=== PATIENT | male | born 1965 | race Two or more races ===

== ENCOUNTER → 2024-03-28 | Outpatient (CLI) | payer OTHER, SELFPAY ==
[2024-03-28 10:18] LABS: Glucose Estimated Average 146 mg/dL (80-131); Hemoglobin A1C 6.7 % Hgb (4.8-6.0)
[2024-03-28 10:32] LABS: Alanine Aminotransferase 13 U/L (10-49); Albumin, Serum 4.5 gm/dL (3.4-4.8); Albumin/Globulin Ratio 1.7 (1.2-2.2); Alkaline Phosphatase 69 U/L (46-116); Anion Gap 5 (7-16); Aspartate Amino Transferase 18 U/L (0-34); BUN/Creatinine Ratio 23 Ratio (12-20); Bilirubin,Total 0.5 mg/dL (0.3-1.2); Blood Urea Nitrogen 21 mg/dL (9-23); Calcium 9.6 mg/dL (8.3-10.6); Calcium (Corrected) 9.6 mg/dL (8.5-10.1); Carbon Dioxide 29.3 mMol/L (20.0-31.0); Cardiac Risk Estimate 2.9 RATIO (4.0-6.7); Chloride 104 mMol/L (98-107); Cholesterol 142 mg/dL (132-200); Creatinine (Component) 0.9 mg/dL (0.6-1.3); Globulin 2.7 gm/dL (2.3-3.5); Glucose 101 mg/dL (74-106); HDL Cholesterol 49 mg/dL (40-60); LDL Cholesterol,Calculated 84 mg/dL (0-130); Osmolality,Calculated 278 (275-295); Potassium 4.2 mMol/L (3.4-5.1); Sodium 138 mMol/L (136-145); Total Protein 7.2 gm/dL (5.7-8.2); Triglycerides 45 mg/dL (30-150); Uric Acid 3.9 mg/dL (3.7-9.2); eGFR > 60 See Note
== END | disposition home or self-care (01) ==
LOC: COPL 09:44
PROVIDERS: PCP Family Medicine; Referring Provider Family Medicine; Visit Provider Family Medicine
DX: E11.40 Type 2 diabetes mellitus with diabetic neuropathy, unspecified (principal); E78.2 Mixed hyperlipidemia; I10 Essential (primary) hypertension; M10.9 Gout, unspecified
CPT/HCPCS: 36415; 80053; 80061; 83036; 84550

== ENCOUNTER 2024-08-11 05:40 | Day surgery (SDC) | payer OTHER, SELFPAY ==
--- NOTE | 2024-08-08 07:00 | EKG_ITS ---
[facility] Test Date: 2024-08-08 Pat Name: CAMILLE GARCIA Department: Room: - Gender: Male Fish Filleter: RT STUDENT : 1965 Requested By: Luis Pope Order Number: [id number] Reading MD: Luis Pope Measurements Intervals Barnhart Rate: 65 P: 48 ME: 180 QRS: -45 QRSD: 153 T: 124 QT: 412 QTc: 430 Interpretive Statements SINUS RHYTHM WITH OCCASIONAL VENTRICULAR PREMATURE COMPLEXES INTRAVENTRICULAR CONDUCTION DELAY [130+ ms QRS DURATION] LATERAL MYOCARDIAL INFARCTION , PROBABLY RECENT [40+ ms Q WAVE AND/OR ST/T ABNORMALITY IN I/aVL/V5/V6] INFERIOR MYOCARDIAL INFARCTION , POSSIBLY ACUTE [40+ ms Q WAVE AND/OR ST/T ABNORMALITY IN II/aVF] ACUTE HI Compared to ECG 03/25/2023 07:12:02 Ventricular premature complex(es) now present Intraventricular conduction delay now present Myocardial infarct finding now present Left-axis deviation no longer present Left bundle-branch block no longer present /store/S0/[id number]/ecg/[id number].pdf
[2024-08-08 07:57] VITALS: BMI 38.1
[2024-08-08 09:08] LABS: Basophils # (Auto) 0.1 Thou/mm3 (0.0-0.2); Basophils % (Auto) 1 % (0-2.5); Eosinophils # (Auto) 0.6 Thou/mm3 (0.0-0.5); Eosinophils % (Auto) 7 % (0-10); Hematocrit 40.6 % (41.0-53.0); Hemoglobin 13.5 g/dL (13.5-16.0); Immature Granulocytes % (Auto) 0 % (0-0); Immature Granulocytes Auto 0.03 Thou/mm3 (0.00-0.00); Lymphocytes # (Auto) 2.3 Thou/mm3 (1.0-4.8); Lymphocytes % (Auto) 27 % (10-50); Mean Corpuscular HGB Conc 33.3 g/dl (31.0-37.0); Mean Corpuscular Hemoglobin 29.3 pg (25.0-35.0); Mean Corpuscular Volume 88 fL (80-100); Monocytes # (Auto) 0.6 Thou/mm3 (0.0-0.8); Monocytes % (Auto) 7 % (0-12); Neutrophils % (Auto) 59 % (37-80); Nucleated Red Blood Cell % 0 /100 WBC (0); Platelet Count 224 Thou/mm3 (140-440); RDW Standard Deviation 43.3 fL (35.1-43.9); White Blood Count 8.5 Thou/mm3 (3.8-10.6)
[2024-08-08 09:16] LABS: Partial Thromboplastin Time 31.6 Seconds (22.0-36.0)
[2024-08-08 09:19] LABS: Alanine Aminotransferase 14 U/L (10-49); Albumin, Serum 4.1 gm/dL (3.4-4.8); Albumin/Globulin Ratio 1.5 (1.2-2.2); Alkaline Phosphatase 64 U/L (46-116); Anion Gap 8 (7-16); Aspartate Amino Transferase 20 U/L (0-34); BUN/Creatinine Ratio 18 Ratio (12-20); Bilirubin,Total 0.5 mg/dL (0.3-1.2); Blood Urea Nitrogen 16 mg/dL (9-23); Calcium 9.2 mg/dL (8.3-10.6); Calcium (Corrected) 9.2 mg/dL (8.5-10.1); Carbon Dioxide 29.5 mMol/L (20.0-31.0); Chloride 105 mMol/L (98-107); Creatinine (Component) 0.9 mg/dL (0.6-1.3); Estimated Creatinine Clearance 103.5 mL/min (>60); Globulin 2.7 gm/dL (2.3-3.5); Glucose 100 mg/dL (74-106); Osmolality,Calculated 284 (275-295); Potassium 4.2 mMol/L (3.4-5.1); Sodium 142 mMol/L (136-145); Total Protein 6.8 gm/dL (5.7-8.2); eGFR > 60 See Note
--- NOTE | 2024-08-08 14:19 | SUR.PREOP ---
Cardiac records reviewed with Dr Mccrary.
[2024-08-11 06:37] VITALS: BP 175/77; PULSE 68; RESP 16; TEMP 36.2; O2SAT 98; BMI 37.5
[2024-08-11] MEDS: RINGERS LACTATED 1000 ML 1,000 ML 20 ML IV (06:50)
--- NOTE | 2024-08-11 07:22 | ESHP_ITS ---
RE: CAMILLE GARCIA : 1965 DATE OF ADMISSION: 08/08/2024 CHIEF COMPLAINT: Triggering right index finger. HISTORY OF PRESENT ILLNESS: The patient has developed triggering of his right index finger. He did have cortisone injection without improvement. He is scheduled for a right index trigger finger release. No numbness or tingling in his hands. PAST MEDICAL HISTORY: Reviewed. , with 5 children. BLOOD TRANSFUSION: None. OPERATIONS: Appendectomy. ALLERGIES: CODEINE. MEDICATIONS: 1. Metformin 2. Pioglitazone 3. Diclofenac gel 4. Phenylephrine 5. Flonase MAJOR MEDICAL ILLNESSES: Diabetes, asthma. Denies heart disease, heart attack, heart murmur, hypertension, gout, kidney disease, liver disease, hepatitis, yellow jaundice, bleeding disorder, depression, ulcer, cancer, valley fever, cholelithiasis. FAMILY HISTORY: Positive for diabetes, asthma, myocardial infarction including mother and father, stroke including father and brother. Prostate cancer. REVIEW OF SYSTEMS: Weight stable. Appetite good. Energy level good. Does have shortness of breath because of asthma. Denies chest pain, orthopnea, paroxysmal nocturnal dyspnea, dyspnea on exertion, productive cough, hemoptysis. Does have constipation. Denies nausea, vomiting, diarrhea, hematemesis, hematochezia, melena, black tarry bowel movements. Denies dysuria, pyuria, hematuria. Denies stroke, seizures, syncope episodes. Does not smoke. Occasionally has a drink. Does have numbness and tingling in the fingers. PHYSICAL EXAMINATION: GENERAL: A well-developed, well-nourished male in no acute distress. MUSCULOSKELETAL: Turns head side to side without pain. Flexes and extends his head without difficulty. Full range of motion of his shoulders, elbows, wrists, hands bilaterally. Has triggering right index finger. CHEST: Clear to percussion and auscultation. HEART: Regular rate and rhythm. No murmurs. No gallops. ABDOMEN: Soft, nontender. No masses. No organomegaly. BREASTS: Deferred. RECTAL: Deferred. GENITAL: Deferred. EXTREMITIES: Examination of the extremities again shows the right index finger. PLAN: Release of right index trigger finger. Risks of the procedure explained to the patient. Signed informed consent was obtained in my office. DT: 20:44:58 TT: 21:32:00 Ref: [id number] - TID: [id number]
--- NOTE | 2024-08-11 07:29 | SUR.PREOP ---
Patient expressed gratitude for prayer before their procedure.
[2024-08-11 09:10] VITALS: BP 161/75; PULSE 60; RESP 14; TEMP 36.2; O2SAT 98
--- NOTE | 2024-08-11 09:10 | SUR.PHASEII ---
pt received from OR in recovery bay 1. pt awake and alert, breathing unlabored on room air. v/s stable. pt dressing to right hand cdi. report received from Demario GILLILAND and Tarun CARPIO.
[2024-08-11 09:15] VITALS: BP 162/76; PULSE 60; RESP 21; TEMP 36.2; O2SAT 96
[2024-08-11 09:20] VITALS: BP 156/72; PULSE 60; RESP 12; TEMP 36.2; O2SAT 97
[2024-08-11 09:25] VITALS: BP 166/74; PULSE 78; RESP 14; TEMP 36.2; O2SAT 97
[2024-08-11 09:35] VITALS: BP 168/82; PULSE 71; RESP 13; TEMP 36.2; O2SAT 99
--- NOTE | 2024-08-11 09:45 | SUR.PHASEII ---
pt awake and alert, breathing unlabored on room air. v/s stable. pt dressing to right hand cdi. pt able to ambulate to bathroom with steady gait. d/c instructions given with and daughter in room, all questions answered. pt d/c via wheelchair with all belongings.
--- NOTE | 2024-08-11 20:41 | PD.SUROPNT ---
Pre Op Diagnosis Right index trigger finger Post Op Diagnosis Same Procedure Release of right trigger finger Findings Triggering right index finger Procedure Description Patient was seen in the preoperative area and again the right index finger was confirmed as the correct digit of the right upper extremity. A arthur was made on the right index finger. Patient was taken the operating room and then using MAC anesthesia a digital nerve block was carried out of the right index finger using lidocaine followed at the end with bupivacaine. Right upper extremity was prepped draped in standard fashion and he received IV Ancef satisfactory anesthesia was achieved and the index finger was blocked. The right upper extremity was then exsanguinated with an Esmarch bandage and the tourniquet was plated to 225 mmHg. A transverse incision was made proximal to the metacarpal phalangeal joint of the right index finger. The incision was carried down through the skin and just into the soft tissue. Gentle blunt dissection was carried out until the flexor tendon was identified to the right index finger. The A1 benigno was identified and then sharply incised with a #11 blade followed by curved strabismus scissors. The patient patient was awakened and asked to flex and extend the right index finger. He was able to close the tip of the distal phalanges into the distal palmar crease and extended with no triggering and there was no palpable triggering. The wound was copious irrigated with Betadine and saline solution. The tourniquet was deflated. Minimal bleeding was encountered. The wound was closed with 4-0 and 5-0 nylon. A bulky dressing was applied using Bactroban ointment Dakin soaked Kerlix sponges dry Kerlix sponges 4 inch cut bias. The patient was taken recovery met eventfully. Anesthesia MAC Implants None Pathology / specimen None Pathology comment: None IVF Infused 500 Urine Output 0 Estimated Blood Loss 5 Condition Stable Surgeon Arthur Lopez MD Surgical Staff Operation Date: 08/11/24 07:30 Case Staff MICROBIOLOGY MANAGER: Demario Burnham
== END 2024-08-11 09:45 | disposition home or self-care (01) ==
PROVIDERS: PCP Family Medicine; Referring Provider Orthopaedic Surgery; Visit Provider Orthopaedic Surgery
PROC: (CPT 26055; principal; 2024-08-11 07:30)
DX: M65.321 Trigger finger, right index finger (principal); Z82.3 Family history of stroke; Z82.49 Family history of ischemic heart disease and other diseases of the circulatory system; Z83.3 Family history of diabetes mellitus; Z01.810 Encounter for preprocedural cardiovascular examination
CPT/HCPCS: 26055; 36415; 80053; 85025; 85610; 85730; 93005; A4217; A4649; J0690; J2704; J2795; J7120; A9270

== ENCOUNTER → 2024-10-06 | Outpatient (CLI) | payer OTHER, SELFPAY ==
[2024-10-06 11:43] LABS: Basophils # (Auto) 0.1 Thou/mm3 (0.0-0.2); Basophils % (Auto) 1 % (0-2.5); Eosinophils # (Auto) 0.3 Thou/mm3 (0.0-0.5); Eosinophils % (Auto) 4 % (0-10); Hematocrit 42.7 % (41.0-53.0); Immature Granulocytes % (Auto) 0 % (0-0); Immature Granulocytes Auto 0.02 Thou/mm3 (0.00-0.00); Lymphocytes # (Auto) 2.1 Thou/mm3 (1.0-4.8); Lymphocytes % (Auto) 25 % (10-50); Mean Corpuscular HGB Conc 32.8 g/dl (31.0-37.0); Mean Corpuscular Hemoglobin 28.9 pg (25.0-35.0); Mean Corpuscular Volume 88 fL (80-100); Monocytes # (Auto) 0.4 Thou/mm3 (0.0-0.8); Monocytes % (Auto) 5 % (0-12); Neutrophils # (Auto) 5.6 Thou/mm3 (1.8-7.7); Neutrophils % (Auto) 65 % (37-80); Nucleated Red Blood Cell % 0 /100 WBC (0); Platelet Count 260 Thou/mm3 (140-440); RDW Standard Deviation 42.6 fL (35.1-43.9); Red Blood Count 4.84 Miln/mm3 (4.50-5.90); White Blood Count 8.5 Thou/mm3 (3.8-10.6)
[2024-10-06 12:05] LABS: Collection Type, Urine Clean Catch; RBC,Urine 0 /hpf (0-3)
[2024-10-06 12:16] LABS: Alanine Aminotransferase 17 U/L (10-49); Albumin, Serum 4.4 gm/dL (3.4-4.8); Albumin/Globulin Ratio 1.8 (1.2-2.2); Alkaline Phosphatase 70 U/L (46-116); Anion Gap 7 (7-16); Aspartate Amino Transferase 19 U/L (0-34); BUN/Creatinine Ratio 23 Ratio (12-20); Bilirubin,Total 0.6 mg/dL (0.3-1.2); Blood Urea Nitrogen 18 mg/dL (9-23); Calcium 8.9 mg/dL (8.3-10.6); Calcium (Corrected) 8.9 mg/dL (8.5-10.1); Carbon Dioxide 29.1 mMol/L (20.0-31.0); Cardiac Risk Estimate 2.9 RATIO (4.0-6.7); Chloride 104 mMol/L (98-107); Cholesterol 144 mg/dL (132-200); Creatinine (Component) 0.8 mg/dL (0.6-1.3); Globulin 2.4 gm/dL (2.3-3.5); Glucose 114 mg/dL (74-106); HDL Cholesterol 49 mg/dL (40-60); LDL Cholesterol,Calculated 81 mg/dL (0-130); Osmolality,Calculated 282 (275-295); Potassium 4.3 mMol/L (3.4-5.1); Sodium 140 mMol/L (136-145); Total Protein 6.8 gm/dL (5.7-8.2); Triglycerides 71 mg/dL (30-150); Uric Acid 3.4 mg/dL (3.7-9.2); eGFR > 60 See Note
[2024-10-06 12:43] LABS: Glucose Estimated Average 160 mg/dL (80-131); Hemoglobin A1C 7.2 % Hgb (4.8-6.0)
[2024-10-06 12:47] LABS: Creatinine MALB Rnd Ur 115 mg/dL (30-125); Microalbumin Creat Ratio 5 mg/gCrea (<30); Microalbumin, Random Urine 6 mg/L (0-300)
[2024-10-06 13:30] LABS: Bilirubin,Urine Negative (Negative); Blood,Urine Negative (Negative); Clarity,Urine Clear (Clear/Hazy); Color,Urine Lt-Yellow (Lt Yel-Yel); Glucose, Urine Negative (Negative); Ketones,Urine Negative (Negative); Leukocyte Esterase,Urine Negative (Negative); Nitrite,Urine Negative (Negative); Protein,Urine Negative (Neg - Trace); Squamous Epithelial Cell,Urine 2 /hpf (0-5); Urobilinogen,Urine Negative mg/dL (0.0-1.0); WBC,Urine 1 /hpf (0-5)
== END | disposition home or self-care (01) ==
LOC: COPL 10:44
PROVIDERS: PCP Family Medicine; Referring Provider Family Medicine; Visit Provider Family Medicine
DX: Z00.00 Encounter for general adult medical examination without abnormal findings (principal); E11.40 Type 2 diabetes mellitus with diabetic neuropathy, unspecified; E78.2 Mixed hyperlipidemia; I10 Essential (primary) hypertension; M10.9 Gout, unspecified
CPT/HCPCS: 36415; 80053; 80061; 81001; 82043; 82570; 83036; 84550; 85025

== ENCOUNTER → 2024-11-14 | Outpatient (CLI) | payer OTHER, SELFPAY ==
[2024-11-14 15:49] LABS: Collection Type, Urine Clean Catch
[2024-11-14 17:18] LABS: Bacteria,Urine 2+; Bilirubin,Urine Negative (Negative); Blood,Urine 3+ (Negative); Color,Urine Orange (Lt Yel-Yel); Glucose, Urine Negative (Negative); Ketones,Urine Trace (Negative); Leukocyte Esterase,Urine Positive (Negative); Nitrite,Urine Negative (Negative); Protein,Urine 3+ (Neg - Trace); RBC,Urine 1138 /hpf (0-3); Specific Gravity,Urine 1.028 (1.001-1.035); Squamous Epithelial Cell,Urine 3 /hpf (0-5); Urobilinogen,Urine Negative mg/dL (0.0-1.0); WBC,Urine 2577 /hpf (0-5)
[2024-11-14 17:23] LABS: Clarity,Urine Cloudy (Clear/Hazy)
== END | disposition home or self-care (01) ==
LOC: SLDO 14:35
PROVIDERS: PCP Family Medicine; Referring Provider Family Medicine; Visit Provider Family Medicine
DX: N30.00 Acute cystitis without hematuria (principal)
CPT/HCPCS: 81001; 87077; 87086; 87186

== ENCOUNTER → 2025-03-13 | Outpatient (CLI) | payer BC, SELFPAY ==
[2025-03-13 10:59] LABS: Glucose Estimated Average 140 mg/dL (80-131); Hemoglobin A1C 6.5 % Hgb (4.8-6.0)
[2025-03-13 11:07] LABS: Alanine Aminotransferase 16 U/L (10-49); Albumin, Serum 4.0 gm/dL (3.4-4.8); Albumin/Globulin Ratio 1.8 (1.2-2.2); Alkaline Phosphatase 54 U/L (46-116); Anion Gap 7 (7-16); Aspartate Amino Transferase 25 U/L (0-34); BUN/Creatinine Ratio 14 Ratio (12-20); Bilirubin,Total 0.5 mg/dL (0.3-1.2); Blood Urea Nitrogen 13 mg/dL (9-23); Calcium 9.0 mg/dL (8.3-10.6); Calcium (Corrected) 9.0 mg/dL (8.5-10.1); Carbon Dioxide 30.3 mMol/L (20.0-31.0); Cardiac Risk Estimate 2.5 RATIO (4.0-6.7); Chloride 105 mMol/L (98-107); Cholesterol 135 mg/dL (132-200); Creatinine (Component) 0.9 mg/dL (0.6-1.3); Globulin 2.2 gm/dL (2.3-3.5); Glucose 101 mg/dL (74-106); HDL Cholesterol 53 mg/dL (40-60); LDL Cholesterol,Calculated 74 mg/dL (0-130); Osmolality,Calculated 283 (275-295); Potassium 4.4 mMol/L (3.4-5.1); Sodium 142 mMol/L (136-145); Total Protein 6.2 gm/dL (5.7-8.2); Triglycerides 42 mg/dL (30-150); eGFR > 60 See Note
== END | disposition home or self-care (01) ==
PROVIDERS: PCP Family Medicine; Referring Provider Family Medicine; Visit Provider Family Medicine
DX: E11.65 Type 2 diabetes mellitus with hyperglycemia (principal); E78.2 Mixed hyperlipidemia; I10 Essential (primary) hypertension
CPT/HCPCS: 36415; 80053; 80061; 83036